=== PATIENT | female | born 1950 | race Caucasian/White ===

== ENCOUNTER 2019-09-04 20:12 | Emergency (ER) | payer MEDICAID ==
[~2019-09-04] VITALS: Ht 162.6 cm; Wt 102.1 kg
--- NOTE | 2019-09-04 20:12 | NUR ---
"BIBFAMILY. L ARM PAIN W/ INTERMITENT NUMBENESS SUNCE 4PM." PT AAOX4, -SOB, NAD NOTED, VSS, PENDING MD DESOUZA
[2019-09-04] MEDS ORDERED: ASPIRIN 325 MG TABLET ONE (20:43)
[2019-09-04 20:45] LABS: BASOPHILS # (AUTO) 0.1 /CMM (0.0-0.2); BASOPHILS % (AUTO) 1.2 % (0.0-2.0); EOSINOPHILS % (AUTO) 4.3 % (0.0-6.0); HEMATOCRIT 39 % (33-45); HEMOGLOBIN 13.4 g/dL (11.5-14.8); LYMPHOCYTES # (AUTO) 1.3 /CMM (0.8-4.8); LYMPHOCYTES % (AUTO) 21.3 % (20.0-44.0); MEAN CORPUSCULAR HGB CONC 34 g/dl (31.0-36.0); MEAN CORPUSCULAR VOLUME 87 fL (82-100); MONOCYTES # (AUTO) 0.6 /CMM (0.1-1.30); MONOCYTES % (AUTO) 9.7 % (2.0-12.0); NEUTROPHILS % (AUTO) 63.5 % (43.0-81.0); PLATELET COUNT (AUTO) 248 /CMM (150-450); RED BLOOD CELL COUNT(AUTO) 4.51 MIL/uL (4.0-5.2); WHITE BLOOD COUNT (AUTO) 6.3 K/uL (4.3-11.0)
[2019-09-04] MEDS ORDERED: ASPIRIN 325 MG TABLET PO ONE (21:00)
[2019-09-04 21:21] LABS: CALCIUM, SERUM 8.9 mg/dL (8.5-10.1); CARBON DIOXIDE 28 mmol/L (21-32); CHLORIDE 106 mmol/L (98-107); CREATININE 0.7 mg/dL (0.6-1.3); GLUCOSE 117 mg/dL (74-106); POTASSIUM 3.7 mmol/L (3.5-5.1); SODIUM SERUM 140 mmol/L (136-145); UREA NITROGEN, BLOOD 11 mg/dL (7-18)
--- NOTE | 2019-09-04 22:15 | NUR ---
PER COREY LEHMAN; PT WILL HAVE PLACEMENT BEFORE 2HRS 12:15AM OR WE CAN ADMIT.
--- NOTE | 2019-09-04 23:35 | NUR ---
transfer infro: Accepted at: [facility] room #: 507-A call for report: [phone] ambulance ETA: [id number]
[2019-09-04 23:52] VITALS: BP 141/82
--- NOTE | 2019-09-04 23:57 | NUR ---
REPORT GIVEN KAMRYN MURILLO AT [facility]
== END 2019-09-05 00:54 | disposition short-term general hospital (02) ==
LOC: ER 20:14
DX: R07.89 Other chest pain (principal)
CPT/HCPCS: 36415; 71045-TC; 80048-TC; 84484-TC; 85025-TC